=== PATIENT | female | born 1995 | race African-American/Black ===

== ENCOUNTER 2016-11-29 10:36 | Observation (INO) | payer SELFPAY ==
[2016-11-29] VITALS (7 sets, daily range): BP systolic 124–164; BP diastolic 71–89; PULSE 63–74; RESP 13–20; TEMP 97.6–98.2; O2SAT 99–100
[~2016-11-29] VITALS: Ht 160 cm; Wt 90.0 kg
[~2016-11-29 10:36] MED LIST: IBUP600 PO; ORPH100T PO
[2016-11-29] MEDS ORDERED: SODIUM CHLORIDE 0.9% FLUSH 10 ML FLUSH IVF PRN (11:15)
--- NOTE | 2016-11-29 11:20 | PD ---
HPI Chief Complaint: Syncope/Near-Syncope Time Seen by Provider: 11:10 Travel History International Travel<30 days: No Contact w/Intl Traveler<30days: No Traveled to known affect area: No History of Present Illness HPI 21-year-old female with no significant past medical history presenting for evaluation of lightheadedness/dizziness. Occurred this morning when she woke up. At that time, she felt the room spinning around her. Denies chest pain, shortness of breath, visual disturbance, headache. On waking up, she still felt a little bit dizzy but was able to function fine without issue. Then at work later in the morning, she fainted. She feels she may have hit her head, does not recall how long she was down for, but it did not seem like a long-time to her. After falling, she went to see urgent care who recommended she present to the ER for further evaluation and head CT. Presently she endorses a little bit of headache from the fall, diffuse, mild. PFSH Past Medical History Medical History: Denies Significant Hx ?: Not Past Surgical History Surgical History: No Previous Surgery Oral Surgery: Yes (WISDOM) Social History Alcohol Use: No Tobacco Use: No Substance Use: No Allergies-Medications (Allergen,Severity, Reaction): Coded Allergies: No Known Allergies (Unverified , 11/29/16) Reported Meds & Prescriptions Reported Meds & Active Scripts Active No Active Prescriptions or Reported Medications Review of Systems Except as stated in HPI: all other systems reviewed are Neg Physical Exam Narrative GENERAL: Well-developed, well-nourished black female sitting up in bed in no acute distress. Pleasant, comfortable. SKIN: No rashes, ecchymoses or lesions. Cool and dry. HEAD: NC/AT. No obvious bruising or lacerations. EYES: PERRL. EOMI. No conjunctival injection or drainage. ENT: MMM. NECK: Supple, no lymphadenopathy. No JVD. CARDIOVASCULAR: Normal to mildly bradycardic rate, regular rhythm. Normal S1/ S2. No MRG RESPIRATORY: CTAB. No crackles or wheezes. GASTROINTESTINAL: Abdomen soft, non-distended, non-tender. No hepato- splenomegaly or palpable masses. MUSCULOSKELETAL: Extremities without clubbing, cyanosis, or edema. NEUROLOGICAL: Awake and alert. Cranial nerves II through XII grossly intact. Moves all extremities without difficulty. Normal speech. Data Data Last Documented VS Vital Signs Date Time Temp Pulse Resp B/P Pulse Ox O2 Delivery O2 Flow Rate FiO2 11/29/16 11:42 88 20 145/86 11/29/16 11:25 100 Room Air 11/29/16 11:03 98.2 Orders Electrocardiogram (11/29/16 11:12) Basic Metabolic Panel (Bmp) (11/29/16 11:12) Ed Urine Pregnancytest Poc (11/29/16 11:12) Troponin I (11/29/16 11:12) Ct Brain W/O Iv Contrast(Rout) (11/29/16 11:12) Ecg Monitoring (11/29/16 11:12) Iv Access Insert/Monitor (11/29/16 11:12) Oximetry (11/29/16 11:12) Sodium Chloride 0.9% Flush (Ns Flush) (11/29/16 11:15) Orthostatic Vital Signs (11/29/16 11:12) Hgb & Hct (11/29/16 11:24) Drug Screen, Random Urine (11/29/16 11:25) Admit Order (Ed Use Only) (11/29/16 13:15) Place In Observation (11/29/16 ) Code Status (11/29/16 13:15) Vital Signs (Adult) Q4H (11/29/16 13:15) Activity Oob Ad Portia (11/29/16 13:15) Pump House Technician / Telemetry .CONTINUOUS (11/29/16 13:15) Diet Regular Basic (11/29/16 Lunch) Sodium Chlor 0.9% 1000 Ml Inj (Ns 1000 M (11/29/16 14:00) Sodium Chloride 0.9% Flush (Ns Flush) (11/29/16 13:15) Sodium Chloride 0.9% Flush (Ns Flush) (11/29/16 21:00) Acetaminophen (Tylenol) (11/29/16 13:15) Ondansetron Inj (Zofran Inj) (11/29/16 13:15) Basic Metabolic Panel (Bmp) (11/30/16 06:00) Complete Blood Count With Diff (11/30/16 06:00) Urinalysis - C+S If Indicated (11/29/16 13:15) Heparin Inj (Heparin Inj) (11/29/16 14:00) Naloxone Inj (Narcan Inj) (11/29/16 13:15) Docusate Sodium-Senna (Radha-Colace) (11/29/16 21:00) Magnesium Hydroxide Liq (Milk Of Magnesi (11/29/16 13:15) Sennosides (Senokot) (11/29/16 13:15) Bisacodyl Supp (Dulcolax Supp) (11/29/16 13:15) Lactulose Liq (Lactulose Liq) (11/29/16 13:15) Sodium Chlor 0.9% 1000 Ml Inj (Ns 1000 M (11/29/16 13:30) Labs Laboratory Tests Test 11/29/16 11/29/16 11:20 11:25 Urine Opiates Screen NEG Urine Barbiturates Screen NEG Urine Amphetamines Screen NEG Urine Benzodiazepines Screen NEG Urine Cocaine Screen NEG Urine Cannabinoids Screen NEG Hemoglobin 12.0 GM/DL Hematocrit 36.3 % Sodium Level 139 MEQ/L Potassium Level 3.9 MEQ/L Chloride Level 104 MEQ/L Carbon Dioxide Level 26.4 MEQ/L Anion Gap 9 MEQ/L Blood Urea Nitrogen 9 MG/DL Creatinine 2.06 MG/DL Estimat Glomerular Filtration 36 ML/MIN Rate Random Glucose 86 MG/DL Calcium Level 9.5 MG/DL Troponin I LESS THAN 0.02 NG/ML MDM Medical Decision Making Medical Screen Exam Complete: Yes Emergency Medical Condition: Yes Medical Record Reviewed: Yes Differential Diagnosis Orthostatic hypotension, vertigo (BPPV), , arrhythmia, NC, electrolyte imbalance, intoxication Narrative Course Patient stable, neurologically intact. CT head negative for acute process. Labs negative for anemia, but significant for acute renal impairment. Will admit for further workup and IV hydration. Diagnosis Primary Impression: Acute renal insufficiency Admitting Information Admitting Physician Requests: Admit Scripts No Active Prescriptions or Reported Meds Jose Nassar MD R1 Nov 29, 2016 11:20
[2016-11-29 11:59] LABS: HEMATOCRIT 36.3 % (35.0-46.0); REVIEW FLAG FINAL
[2016-11-29 12:10] LABS: AMPHETAMINE, URINE NEG (NEG); BARBITURATES, URINE NEG (NEG); COCAINE, URINE NEG (NEG)
[2016-11-29 12:18] LABS: ANION GAP 9 MEQ/L (5-15); BICARBONATE 26.4 MEQ/L (21.0-32.0); BLOOD UREA NITROGEN 9 MG/DL (7-18); CHLORIDE 104 MEQ/L (98-107); GLOMERULAR FILTRATION RATE 36 ML/MIN (>89); POTASSIUM 3.9 MEQ/L (3.5-5.1); SODIUM (NA) 139 MEQ/L (136-145)
--- NOTE | 2016-11-29 12:51 | PD ---
Physical Exam Date Seen by Provider: Nov 29, 2016 Narrative GENERAL: SKIN: Warm and dry. HEAD: Atraumatic. Normocephalic. EYES: Pupils equal and round. No scleral icterus. No injection or drainage. ENT: No nasal bleeding or discharge. Mucous membranes pink and moist. NECK: Trachea midline. No JVD. CARDIOVASCULAR: Regular rate and rhythm. RESPIRATORY: No accessory muscle use. Clear to auscultation. Breath sounds equal bilaterally. GASTROINTESTINAL: Abdomen soft, non-tender, nondistended. Hepatic and splenic margins not palpable. MUSCULOSKELETAL: Extremities without clubbing, cyanosis, or edema. No obvious deformities. NEUROLOGICAL: Awake and alert. No obvious cranial nerve deficits. Motor grossly within normal limits. Five out of 5 muscle strength in the arms and legs. Normal speech. PSYCHIATRIC: Appropriate mood and affect; insight and judgment normal. Data Data Last Documented VS Vital Signs Date Time Temp Pulse Resp B/P Pulse Ox O2 Delivery O2 Flow Rate FiO2 11/29/16 11:42 88 20 145/86 11/29/16 11:25 100 Room Air 11/29/16 11:03 98.2 Orders Electrocardiogram (11/29/16 11:12) Basic Metabolic Panel (Bmp) (11/29/16 11:12) Ed Urine Pregnancytest Poc (11/29/16 11:12) Troponin I (11/29/16 11:12) Ct Brain W/O Iv Contrast(Rout) (11/29/16 11:12) Ecg Monitoring (11/29/16 11:12) Iv Access Insert/Monitor (11/29/16 11:12) Oximetry (11/29/16 11:12) Sodium Chloride 0.9% Flush (Ns Flush) (11/29/16 11:15) Orthostatic Vital Signs (11/29/16 11:12) Hgb & Hct (11/29/16 11:24) Drug Screen, Random Urine (11/29/16 11:25) Labs Laboratory Tests Test 11/29/16 11/29/16 11:20 11:25 Urine Opiates Screen NEG Urine Barbiturates Screen NEG Urine Amphetamines Screen NEG Urine Benzodiazepines Screen NEG Urine Cocaine Screen NEG Urine Cannabinoids Screen NEG Hemoglobin 12.0 GM/DL Hematocrit 36.3 % Sodium Level 139 MEQ/L Potassium Level 3.9 MEQ/L Chloride Level 104 MEQ/L Carbon Dioxide Level 26.4 MEQ/L Anion Gap 9 MEQ/L Blood Urea Nitrogen 9 MG/DL Creatinine 2.06 MG/DL Estimat Glomerular Filtration 36 ML/MIN Rate Random Glucose 86 MG/DL Calcium Level 9.5 MG/DL Troponin I LESS THAN 0.02 NG/ML [facility] Medical Record Reviewed: Yes Supervised Visit with MARICHUY: No Diagnosis Primary Impression: Acute renal insufficiency Admitting Information Admitting Physician Requests: Observation Scripts No Active Prescriptions or Reported Meds Maxi Goel MD Nov 29, 2016 12:51
--- NOTE | 2016-11-29 12:52 | RADRPT ---
EXAM DATE/TIME: 11/29/2016 12:34 [facility] COMPARISON: No previous studies available for comparison. INDICATIONS : Syncopal episode today RADIATION DOSE: 33.37 CTDIvol (mGy) MEDICAL HISTORY : None SURGICAL HISTORY : None. ENCOUNTER: Initial ACUITY: 1 day PAIN SCALE: 5/10 LOCATION: cranial TECHNIQUE: Multiple contiguous axial images were obtained of the head. Using automated exposure control and adj ustment of the mA and/or kV according to patient size, radiation dose was kept as low as reasonably a chievable to obtain optimal diagnostic quality images. DICOM format image data is available electro nically for review and comparison. FINDINGS: CEREBRUM: The ventricles are normal for age. No evidence of midline shift, mass lesion, hemorrhage or acute in farction. No extra-axial fluid collections are seen. POSTERIOR FOSSA: The cerebellum and brainstem are intact. The 4th ventricle is midline. The cerebellopontine angle i s unremarkable. EXTRACRANIAL: The visualized portion of the orbits is intact. SKULL: The calvaria is intact. No evidence of skull fracture. CONCLUSION: No acute disease. Weston Murphy MD on November 29, 2016 at 12:50 Board Certified Radiologist. This report was verified electronically.
[2016-11-29] MEDS ORDERED: BISACODYL 10 MG SUPP RECTAL PRN (13:15)
[2016-11-29] MEDS ORDERED: ONDANSETRON HCL 4 MG/2 ML VIAL IVP PRN (13:15)
[2016-11-29] MEDS ORDERED: MAGNESIUM HYDROXIDE SUSP 30 ML CUP PO PRN (13:15)
[2016-11-29] MEDS ORDERED: SODIUM CHLORIDE 0.9% FLUSH 10 ML FLUSH IV FLUSH PRN (13:15)
[2016-11-29] MEDS ORDERED: SENNOSIDES 8.6 MG TAB PO PRN (13:15)
[2016-11-29] MEDS ORDERED: ACETAMINOPHEN 325 MG TAB PO PRN (13:15)
[2016-11-29] MEDS ORDERED: LACTULOSE SYRUP 20 GM/30 ML CUP PO PRN (13:15)
[2016-11-29] MEDS ORDERED: NALOXONE HCL 0.4 MG/ML AMP IV PRN (13:15)
--- NOTE | 2016-11-29 13:23 | HHI.HP ---
HPI [facility] Primary Care Physician No Primary Care Physician Admission Diagnosis ACUTE RENAL INSUFFICIENCY Diagnoses: Chief Complaint: Near Syncopal episode. Travel History International Travel<30 Days: No Contact w/Intl Traveler <30 Da: No Traveled to Known Affected Are: No History of Present Illness This is a pleasant 21 y/o Female with no significant past medical history, who came to ER with Lightheadedness/dizziness that occurred early when she woke up, she felt the room was spinning around her, denied chest pain, Shortness of breath, visual disturbances, Headache, then she fainted, does not recall how long she was down for, but it did not seem like a long-time to her. After falling, she went to see urgent care who recommended she present to the ER for further evaluation and head CT. The patient was seen in Emergency room in the presence of her Sister and Building Specialist performing the Kidney Ultrasound within normal limits. Review of Systems Except as stated in HPI: all other systems reviewed are Neg Past Family Social History Past Medical History No significant past medical history Past Surgical History No past Surgical History Reported Medications Reported Meds & Active Scripts Active No Active Prescriptions or Reported Medications Allergies: Coded Allergies: No Known Allergies (Unverified , 11/29/16) Active Ordered Medications Current Medications Medications (Trade) Dose Ordered Sig/Paul Route Start Time Stop Time Status Last Admin (NS 1000 ml Inj) 1,000 ml @ 150 mls/hr Q6H40M IV 11/29/16 14:00 (NS Flush) 2 ml UNSCH PRN IV FLUSH 11/29/16 13:15 (NS Flush) 2 ml BID IV FLUSH 11/29/16 21:00 (Tylenol) 650 mg Q4H PRN PO 11/29/16 13:15 (Zofran Inj) 4 mg Q6H PRN IVP 11/29/16 13:15 (Heparin Inj) 5,000 units Q12H SQ 11/29/16 14:00 11/29/16 14:21 (Narcan Inj) 0.4 mg UNSCH PRN IV 11/29/16 13:15 (Radha-Colace) 1 tab BID PO 11/29/16 21:00 (Milk Of Magnesia Liq) 30 ml Q12H PRN PO 11/29/16 13:15 (Senokot) 17.2 mg Q12H PRN PO 11/29/16 13:15 (Dulcolax Supp) 10 mg DAILY PRN RECTAL 11/29/16 13:15 (Lactulose Liq) 30 ml DAILY PRN PO 11/29/16 13:15 Family History Asked and denied. Social History Works as a [employer], Denies any toxic habits Physical Exam Vital Signs Vital Signs Date Time Temp Pulse Resp B/P Pulse Ox O2 Delivery O2 Flow Rate FiO2 11/29/16 11:42 88 20 145/86 11/29/16 11:41 62 14 141/83 11/29/16 11:41 64 13 146/86 11/29/16 11:25 100 Room Air 11/29/16 11:03 98.2 72 14 164/85 100 Room Air 11/29/16 10:45 98.2 74 15 127/84 99 Physical Exam GENERAL: Well-developed patient, in no apparent distress. Obesity. SKIN: No rashes, ecchymoses or lesions. Cool and dry. HEAD: Atraumatic. Normocephalic. No temporal or scalp tenderness. EYES: Pupils equal round and reactive. Extraocular motions intact. No scleral icterus. No injection or drainage. ENT: Nose without bleeding, purulent drainage or septal hematoma. Throat without erythema, tonsillar hypertrophy or exudate. Uvula midline. Airway patent. NECK: Trachea midline. No JVD or lymphadenopathy. Supple, nontender, no meningeal signs. CARDIOVASCULAR: Regular rate and rhythm without murmurs, gallops, or rubs. RESPIRATORY: Clear to auscultation. Breath sounds equal bilaterally. No wheezes , rales, or rhonchi. GASTROINTESTINAL: Abdomen soft, non-tender, nondistended. No hepato-splenomegaly , or palpable masses. No guarding. MUSCULOSKELETAL: Extremities without clubbing, cyanosis, or edema. No joint tenderness, effusion, or edema noted. No calf tenderness. Negative Homans sign bilaterally. NEUROLOGICAL: Awake and alert. Cranial nerves II through XII intact. Motor and sensory grossly within normal limits. Five out of 5 muscle strength in all muscle groups. Normal speech. Laboratory Laboratory Tests Test 11/29/16 11/29/16 11:20 11:25 Urine Opiates Screen NEG Urine Barbiturates Screen NEG Urine Amphetamines Screen NEG Urine Benzodiazepines Screen NEG Urine Cocaine Screen NEG Urine Cannabinoids Screen NEG Hemoglobin 12.0 Hematocrit 36.3 Sodium Level 139 Potassium Level 3.9 Chloride Level 104 Carbon Dioxide Level 26.4 Anion Gap 9 Blood Urea Nitrogen 9 Creatinine 2.06 Estimat Glomerular Filtration 36 Rate Random Glucose 86 Calcium Level 9.5 Troponin I LESS THAN 0.02 Result Diagram: 11/29/16 1125 11/29/16 1125 Imaging Last Impressions Head CT 11/29/16 1112 Signed Impressions: Service Date/Time: Tuesday, November 29, 2016 12:34 - CONCLUSION: No acute disease. Weston Murphy MD Assessment and Plan Assessment and Plan 1. Syncopal episode, found with Acute kidney Injury I do not have previous studies, patient admitted for Observation Cardiac Enzymes Negative, probable vasovagal, dehydration possible, giving IV fluids. asked for Orthostatic vital signs, rule out interseptal hypertrophy not evident on ECG sinus rhythm. CT Head reviewed. 2. Acute Kidney Injury does not look like chronic pathology on Kidney ultrasound continue IV fluids and follow in am tomorrow, follow drug screen, avoid nephrotoxic drugs. 3. Obesity strongly recommended diet and exercise. Discharge in am tomorrow if Improving condition. DVT prophylaxis Heparin adjusted to renal function. Code Status Full Code. Discussed Condition With Patient, her Sister, Rn Advice, and ER physician. Fernando Mccord MD Nov 29, 2016 13:23
[2016-11-29] MEDS ORDERED: SODIUM CHLOR 0.9% 1000 ML INJ 1,000 ML IV ONE (13:30)
--- NOTE | 2016-11-29 14:13 | RADRPT ---
EXAM DATE/TIME: 11/29/2016 13:30 [facility] COMPARISON: No previous studies available for comparison. INDICATIONS : Increased BUN/creatinine. MEDICAL HISTORY : No significant medical history. SURGICAL HISTORY : [place] teeth. ENCOUNTER: Initial ACUITY: 1 day PAIN SCORE: 0/10 LOCATION: Bilateral flank MEASUREMENTS: RIGHT KIDNEY: 10.9 x 4.6 x 4.9 cm LEFT KIDNEY: 10.9 x 5.5 x 4.7 cm FINDINGS: RIGHT KIDNEY: Renal cortex is normal in thickness and echotexture. No hydronephrosis, stone, or mass. LEFT KIDNEY: Renal cortex is normal in thickness and echotexture. No hydronephrosis, stone, or mass. BLADDER: Within normal limits given the degree of distension. Note is made of calcified gallstones within a decompressed gallbladder. CONCLUSION: 1. Unremarkable kidneys. 2. Cholelithiasis. Obed Scales Jr., MD on November 29, 2016 at 14:10 Board Certified Radiologist. This report was verified electronically.
[2016-11-29] MEDS: HEPARIN SODIUM - SQ 10,000 UNITS/ML VIAL SQ SCH (14:21)
[2016-11-29 15:37] LABS: BLOOD, URINE NEG (NEG); COMMENT (UR) CULT NOT INDICATED; CULTURE IF INDICATED CULT NOT INDICATED; GLUCOSE,URINE NEG (NEG); KETONE, URINE NEG (NEG); NITRITE,URINE NEG (NEG); PH, URINE 7.5 (5.0-8.5); SQUAMOUS EPITHELIAL CELL URINE 1 /hpf (0-5); URINE COLOR LIGHT-YELLOW (YELLW/STRAW)
[2016-11-29] MEDS: SODIUM CHLOR 0.9% 1000 ML INJ 1,000 ML IV SCH ×2 (15:39→20:40)
--- NOTE | 2016-11-29 19:51 | ECHRPT ---
Indication: Other hypertrophic cardiomyopathy CONCLUSIONS Normal left ventricular size. Wall thickness is normal. The left ventricular systolic function is low normal with an estimated ejection fraction in the rang e of 50- 55%. No regional wall motion abnormalities are present. Trace mitral valve regurgitation. BP: / HR: Rhythm: MEASUREMENTS (Male / Female) Normal Values Technical Quality: 2D ECHO LV Diastolic Diameter PLAX 4.7 cm 4.2 - 5.9 / 3.9 - 5.3 cm LV Systolic Diameter PLAX 3.4 cm IVS Diastolic Thickness 0.7 cm 0.6 - 1.0 / 0.6 - 0.9 cm LVPW Diastolic Thickness 0.8 cm 0.6 - 1.0 / 0.6 - 0.9 cm LV Relative Wall Thickness 0.3 LA Systolic Diameter LX 3.1 cm 3.0 - 4.0 / 2.7 - 3.8 cm M-MODE Aortic Root Diameter MM 3.0 cm AV Cusp Separation MM 1.8 cm DOPPLER Mitral E Point Velocity 99.7 cm/s Mitral A Point Velocity 65.2 cm/s Mitral E to A Ratio 1.5 TR Peak Velocity 167.0 cm/s TR Peak Gradient 11.2 mmHg FINDINGS LEFT VENTRICLE Normal left ventricular size. Wall thickness is normal. The left ventricular systolic function is low normal with an estimated ejection fraction in the rang e of 50- 55%. No regional wall motion abnormalities are present. RIGHT VENTRICLE Normal right ventricular size and systolic function. LEFT ATRIUM The left atrial size is normal. RIGHT ATRIUM The right atrial size is normal. ATRIAL SEPTUM Normal atrial septal thickness without atrial level shunting by limited color doppler interrogation. AORTA The aortic root and proximal ascending aorta are normal in size on limited imaging. MITRAL VALVE Trace mitral valve regurgitation. AORTIC VALVE Trileaflet aortic valve. No aortic valve stenosis or regurgitation. TRICUSPID VALVE Structurally normal tricuspid valve. No tricuspid valve stenosis or regurgitation. PULMONARY VALVE The pulmonary valve is not well visualized. VESSELS The inferior vena cava is normal in size. PERICARDIUM No pericardial effusion. Fitz Horton MD, FACC (Electronically Signed) Final Date:29 November 2016 19:49
[2016-11-29] MEDS: SODIUM CHLORIDE 0.9% FLUSH 10 ML FLUSH IV FLUSH SCH (21:00)
[2016-11-29] MEDS: DOCUSATE SODIUM 50 MG/SENNA 8.6 MG TAB PO SCH (21:00)
[2016-11-30 00:20] VITALS: BP_SYST 123; BP_SYST 130; BP_SYST 131; BP_DIAS 60; BP_DIAS 63; BP_DIAS 73; PULSE 70; RESP 17; TEMP 98.4; O2SAT 100
[2016-11-30] MEDS: HEPARIN SODIUM - SQ 10,000 UNITS/ML VIAL SQ SCH (02:00)
[2016-11-30 03:10] VITALS: BP_SYST 116; BP_SYST 124; BP_SYST 128; BP_DIAS 52; BP_DIAS 74; BP_DIAS 77; PULSE 62; RESP 18; TEMP 97.2; O2SAT 98
[2016-11-30] MEDS: SODIUM CHLOR 0.9% 1000 ML INJ 1,000 ML IV SCH (04:18)
[2016-11-30 07:14] VITALS: PULSE 61
[2016-11-30 07:51] LABS: AUTOMATED NEUTROPHIL # 6.7 TH/MM3 (1.8-7.7); BASOPHIL # 0.1 TH/MM3 (0-0.2); BASOPHIL % 0.6 % (0.0-2.0); EOSINOPHIL # 0.1 TH/MM3 (0-0.4); EOSINOPHIL % 0.6 % (0.0-4.0); HEMATOCRIT 35.5 % (35.0-46.0); HEMO FLAGS DIFF FINAL; LYMPH % 34.1 % (9.0-44.0); MEAN CELL VOLUME 74.5 FL (80.0-100.0); MEAN CORPUSCULAR HEMOGLOBIN 24.5 PG (27.0-34.0); MEAN CORPUSCULAR HGB CONC 32.9 % (32.0-36.0); MONO % 8.6 % (0.0-8.0); NEUT % 56.1 % (16.0-70.0); PLATELET COUNT 332 TH/MM3 (150-450); RED BLOOD COUNT 4.76 MIL/MM3 (4.00-5.30); RED CELL DISTRIBUTION WIDTH 16.2 % (11.6-17.2); WHITE BLOOD COUNT 11.9 TH/MM3 (4.0-11.0)
--- NOTE | 2016-11-30 08:16 | HHI.PR ---
Subjective Remarks Follow up for syncope with ELLEN. The patient reports feeling well today. Denies any headache, lightheadedness, dizziness, chest pain, shortness of breath, or abdominal complaints. She wants to go home. She reports that yesterday she jumped up really quickly then developed lightheadedness and fainted. She admits to not drinking much water recently, but denies any nausea/diarrhea. Objective Vitals Vital Signs Date Time Temp Pulse Resp B/P Pulse Ox O2 Delivery O2 Flow Rate FiO2 11/30/16 07:14 61 11/30/16 03:10 97.2 62 18 116/52 98 124/74 128/77 11/30/16 00:20 98.4 70 17 123/63 100 130/73 131/60 11/29/16 20:11 63 17 138/79 100 150/89 11/29/16 20:09 97.6 67 17 124/71 100 11/29/16 11:42 88 20 145/86 11/29/16 11:41 62 14 141/83 11/29/16 11:41 64 13 146/86 11/29/16 11:25 100 Room Air 11/29/16 11:03 98.2 72 14 164/85 100 Room Air 11/29/16 10:45 98.2 74 15 127/84 99 I/O 11/29/16 11/29/16 11/29/16 11/30/16 11/30/16 11/30/16 07:00 15:00 23:00 07:00 15:00 23:00 Intake Total 100 ml Balance 100 ml Intake Oral 100 ml # Voids 1 Result Diagram: 11/30/16 0642 11/29/16 1125 Imaging Last Impressions Head CT 11/29/16 1112 Signed Impressions: Service Date/Time: Tuesday, November 29, 2016 12:34 - CONCLUSION: No acute disease. Weston Murphy MD Renal Ultrasound 11/29/16 0000 Signed Impressions: Service Date/Time: Tuesday, November 29, 2016 13:30 - CONCLUSION: 1. Unremarkable kidneys. 2. Cholelithiasis. Obed Scales Jr., MD Objective Remarks GENERAL: Well-nourished, well-developed young female patient in [facility]. SKIN: Warm and dry. No rash. HEENT: Normocephalic. Atraumatic.Pupils equal and round. Mucous membranes pink and moist. CARDIOVASCULAR: Regular rate and rhythm. S1, S2 noted. No murmur appreciated. RESPIRATORY: No accessory muscle use. Clear to auscultation. Breath sounds equal bilaterally. GASTROINTESTINAL: Abdomen soft, non-tender, nondistended. Normoactive bowel sounds x4. MUSCULOSKELETAL: No obvious deformities. Extremities without clubbing, cyanosis , or edema. NEUROLOGICAL: Awake and alert. No obvious cranial nerve deficits. Motor grossly within normal limits. Normal speech. PSYCHIATRIC: Appropriate mood and affect; insight and judgment normal. Medications and IVs Current Medications Medications (Trade) Dose Ordered Sig/Paul Route Start Time Stop Time Status Last Admin (NS 1000 ml Inj) 1,000 ml @ 150 mls/hr Q6H40M IV 11/29/16 14:00 11/30/16 04:18 (NS Flush) 2 ml UNSCH PRN IV FLUSH 11/29/16 13:15 (NS Flush) 2 ml BID IV FLUSH 11/29/16 21:00 (Tylenol) 650 mg Q4H PRN PO 11/29/16 13:15 (Zofran Inj) 4 mg Q6H PRN IVP 11/29/16 13:15 (Heparin Inj) 5,000 units Q12H SQ 11/29/16 14:00 11/29/16 14:21 (Narcan Inj) 0.4 mg UNSCH PRN IV 11/29/16 13:15 (Radha-Colace) 1 tab BID PO 11/29/16 21:00 (Milk Of Magnesia Liq) 30 ml Q12H PRN PO 11/29/16 13:15 (Senokot) 17.2 mg Q12H PRN PO 11/29/16 13:15 (Dulcolax Supp) 10 mg DAILY PRN RECTAL 11/29/16 13:15 (Lactulose Liq) 30 ml DAILY PRN PO 11/29/16 13:15 A/P Problem List: (1) Acute renal insufficiency ICD Code: N28.9 Status: Acute (2) Syncope ICD Code: R55 Status: Acute Assessment and Plan 21-year-old female with no significant past medical history presents with acute onset of lightheadedness and syncope after standing up quickly from sleep Syncopal episode: suspect secondary to vasovagal in addition to dehydration, found to have ELLEN upon arrival. -Head CT images reviewed, unremarkable -ACS rule out with negative serial cardiac enzymes and EKG without acute ischemic changes -Echocardiogram unremarkable with EF 50-55% -Give IVF hydration -orthostatic vital signs negative -symptoms resolved Acute Kidney Injury: Cr 2.06, likely prerenal secondary to dehydration. -Renal U/S reviewed and unremarkable -UA and UDS unremarkable -Give IVF hydration -Avoid nephrotoxins -Repeat BMP shows ELLEN resolved, Cr 2.06 --> 0.61 -Patient counseled on maintaining oral hydration with water after discharge Obesity: BMI 35. Recommended diet and exercise. F/up with PCP. DVT prophylaxis Heparin adjusted to renal function. Discharge Planning 0800hrs: Likely discharge today if renal function improved on repeat BMP. 0850hrs: BMP resulted, ELLEN resolved with Cr 0.61. Stable for discharge. Discharge patient to home Condition on discharge: Improved Regular Diet as tolerated Ad Portia activity Rx written: Follow-up with primary care physician within 1 week No Galvan PA-C Nov 30, 2016 8:15 am
--- NOTE | 2016-11-30 08:16 | HHI.DCPOC ---
Discharge Care Plan Diagnosis: (1) Acute renal insufficiency (2) Syncope Goals to Promote Your Health * To prevent worsening of your condition and complications * To maintain your health at the optimal level Directions to Meet Your Goals Take your medications as prescribed Follow your dietary instruction Follow activity as directed Keep your appointments as scheduled Take your immunizations and boosters as scheduled If your symptoms worsen call your PCP, if no PCP go to Urgent Care Center or Emergency Room Smoking is Dangerous to Your Health. Avoid second hand smoke Call the 24-hour hour crisis hotline for domestic abuse at No Galvan PA-C Nov 30, 2016 8:16 am
[2016-11-30 08:18] VITALS: BP_SYST 126; BP_SYST 127; BP_SYST 130; BP_DIAS 60; BP_DIAS 65; BP_DIAS 72; PULSE 66; RESP 14; TEMP 98.6; O2SAT 99
[2016-11-30] MEDS: SODIUM CHLORIDE 0.9% FLUSH 10 ML FLUSH IV FLUSH SCH (08:28)
[2016-11-30] MEDS: DOCUSATE SODIUM 50 MG/SENNA 8.6 MG TAB PO SCH (08:29)
[2016-11-30 08:54] LABS: BICARBONATE 27.5 MEQ/L (21.0-32.0); POTASSIUM 3.7 MEQ/L (3.5-5.1)
--- NOTE | 2016-11-30 10:02 | EKG ---
Date Performed: 11/29/2016 Time Performed: 11:39:41 PTAGE: 21 years EKG: Sinus rhythm WITH SINUS ARRHYTHMIA NORMAL ECG Since PREVIOUS TRACING , no significant change noted PREVIOUS TRACIN08/04/2015 22.52 DOCTOR: Cheikh Terrell Interpretating Date/Time 11/30/2016 10:00:19
== END 2016-11-30 11:09 | disposition home or self-care (01) ==
LOC: NEPE 10:36 → NEDA 13:17 → NEPFCDU 19:33
PROVIDERS: ADMIT Hospitalist; ATTEND Hospitalist
DX: N28.9 Disorder of kidney and ureter, unspecified (principal); R55 Syncope and collapse; E66.9 Obesity, unspecified; Z68.35 Body mass index [BMI] 35.0-35.9, adult
CPT/HCPCS: 70450; 76775; 80048; 80307; 81001; 84484; 84703; 85014; 85018; 85025; 93005; 93306; 99285; G0378; J1644; J7030